=== PATIENT | female | born 1945 | race Caucasian/White ===

== ENCOUNTER 2016-07-27 10:01 | Day surgery (SDC) | payer OTHER ==
[~2016-07-27 10:01] MED LIST: Lactated Ringers 1,000 ML IV SCH; Sodium Chloride 0.9% 10 ML Syringe FLUSH PRN; Sodium Chloride 0.9% 2.5 ML Syringe FLUSH PRN
--- NOTE | 2016-07-27 10:47 | PCM.PREANE ---
Preanesthetic Assessment - Anesthesia/Transfusion/Family Hx Anesthesia History: Prior Anesthesia Without Reaction Family History of Anesthesia Reaction: No Transfusion History: No Prior Transfusion(s) Intubation History: Unknown - Review of Systems General: No Symptoms Pulmonary: No Symptoms Cardiovascular: No Symptoms Gastrointestinal: Difficulty swallowing Neurological: No Symptoms Other: Reports: None - Physical Assessment O2 Sat by Pulse Oximetry: 97 Respiratory Rate: 16 Vital Signs: Last Vital Signs Temp 36.7 C 07/27/16 10:23 Pulse 91 07/27/16 10:23 Resp 16 07/27/16 10:23 BP 125/82 07/27/16 10:23 Pulse Ox 97 07/27/16 10:23 Height: 1.65 m Weight: 69.853 kg ASA Class: 2 Mental Status: Alert & Oriented x3 Airway Class: Mallampati = 2 Dentition: Reports: Normal Dentition, Doyline(s) (x1 upper front) Thyro-Mental Finger Breadths: 2 Mouth Opening Finger Breadths: 3 ROM/Head Extension: Full Lungs: Clear to auscultation, Normal respiratory effort Cardiovascular: Regular Rate, Regular Rhythm - Allergies Allergies/Adverse Reactions: Allergies Allergy/AdvReac Type Severity Reaction Status Date / Time atorvastatin Allergy sore Verified 07/25/16 12:56 muscles/SOB cat dander Allergy Shortness Verified 07/25/16 12:58 of Breath grass pollen Allergy Shortness Verified 07/25/16 12:58 of Breath Penicillins Allergy Redness Verified 07/25/16 12:56 dust Allergy Shortness Uncoded 07/25/16 12:58 of Breath - Blood Blood Available: No - Anesthesia Plan Pre-Op Medication Ordered: None - Acknowledgements Anesthesia Type Planned: MAC Pt an Appropriate Candidate for the Planned Anesthesia: Yes Alternatives and Risks of Anesthesia Discussed w Pt/Guardian: Yes Pt/Guardian Understands and Agrees with Anesthesia Plan: Yes PreAnesthesia Questionnaire HEENT History: Reports: Allergic rhinitis Cardiovascular History: Reports: High cholesterol, Hypertension Gastrointestinal History: Reports: Other (see below) Other Gastrointestinal History: difficulty swallowing Genitourinary History: Reports: None Musculoskeletal History: Reports: Arthritis, Fracture Psychiatric History: Reports: Anxiety - Past Surgical History Head Surgeries/Procedures: Reports: None HEENT Surgical History: Reports: Cataract surgery Female Surgical History: Reports: Hysterectomy - SUBSTANCE USE Smoking Status *Q: Current Some Day Smoker Tobacco Use Within Last Twelve Months: Cigarettes Days Per Week of Alcohol Use: 3 Number of Drinks Per Day: 1 Total Drinks Per Week: 3 Recreational Drug Use History: No - HOME MEDS Home Medications: Home Meds Neomycin/Polymyxin B Sulf/HC [Fejsiaqp-Ysibndtdd-Yx Ear Soln] 1 drop EARBOTH ASDIRECTED PRN 07/25/16 [History] amLODIPine Bes/Olmesartan Med [Amlodipine-Olmesartan 5-20 mg] 1 tab PO ASDIRECTED 07/25/16 [History] - CURRENT (IN HOUSE) MEDS Current Meds: Current Medications Lactated Ringer's (Ringers, Lactated) 1,000 mls @ 125 mls/hr IV ASDIRECTED KARINA Last Admin: 07/27/16 10:24 Dose: 125 mls/hr Sodium Chloride (Saline Flush) 10 ml FLUSH ASDIRECTED PRN PRN Reason: Keep Vein Open Sodium Chloride (Saline Flush) 2.5 ml FLUSH ASDIRECTED PRN PRN Reason: Keep Vein Open
[2016-07-27] MEDS ORDERED: Midazolam 1 MG/ML 2 ML SDV ONE (11:36)
[2016-07-27] MEDS ORDERED: Lidocaine 2% 5 ML SDV ONE (11:36)
[2016-07-27] MEDS ORDERED: Propofol 200 MG/20 ML SDV ONE ×2 (11:36→13:16)
[2016-07-27] MEDS ORDERED: fentaNYL 100 MCG/2 ML SDV ONE (11:37)
[2016-07-27] MEDS ORDERED: Glycopyrrolate 0.2 MG/ML SDV ONE (13:18)
--- NOTE | 2016-07-27 13:59 | PCM.OPNOTE ---
- General Post-Op/Procedure Note Date of Surgery/Procedure: 07/27/16 Operative Procedure(s): Diagnostic egd and colonoscopy Findings: Normal esophagus and colon Pre Op Diagnosis: Dysphagia, anal pain Post-Op Diagnosis: normal colon and egd Anesthesia Technique: BRANDON Primary Surgeon: Jo Dumont Condition: Good
--- NOTE | 2016-07-27 14:14 | PCM.POSTAN ---
POST ANESTHESIA ASSESSMENT - MENTAL STATUS Mental Status: alert, oriented - RESPIRATORY Respiratory Status: respiratory rate WNL, airway patent, O2 saturation stable - CARDIOVASCULAR CV Status: pulse rate WNL, blood pressure stable - GASTROINTESTINAL GI Status: no symptoms - POST OP HYDRATION Hydration Status: adequate & stable - OBSERVATIONS Free Text/Narrative:: no anesthesia problems
[2016-07-27 14:50] VITALS: BP 122/68
--- NOTE | 2016-07-28 00:43 | OR ---
SURGEON: MEHDI KEENE MD DATE OF PROCEDURE: 07/27/2016 PREOPERATIVE DIAGNOSES: Dysphagia and anal pain. POSTOPERATIVE DIAGNOSIS: Dysphagia and anal pain. PROCEDURE PERFORMED: Diagnostic EGD and colonoscopy. INSTRUMENT USED: Olympus endoscope and colonoscope. ANESTHESIA: MAC. EXTENT OF EXAM: To the second portion of duodenum during the endoscopic portion, to the cecum during the colonoscopic portion. PREPARATION: Good. LIMITATIONS: None. INDICATIONS: The patient is a 71-year-old female, who presents with multiple complaints. Upon further questioning, the patient has been having some dysphagia with swallowing; however, she relates this to being exposed to dust and atorvastatin. The patient has also been experiencing some anal pain with bowel movements. She has not noticed any change in the color, caliber, or consistency of her stool. She has no family history of colon cancer. A decision was made to proceed to the operating room for a diagnostic EGD and colonoscopy. The patient and I discussed the procedures as well as expected perioperative course. We discussed the risks, including bleeding, infection, damage to surrounding structures, including perforation. The patient verbalized understanding and wished to proceed. PROCEDURE IN DETAIL: The patient was brought into the endoscopy suite and placed in a beach chair position. A time-out was completed verifying the patient's name, age, date of , allergies, and procedure to be performed. A bite block was placed in the patient's mouth and monitored anesthesia care was induced. Oxygen was provided via nasal cannula throughout the procedure. Once adequate sedation was achieved, the Olympus endoscope was passed over the patient's tongue down her esophagus and directed under direct visualization to the second portion of duodenum. This appeared normal and a photograph was taken. The scope was then pulled back in retrograde fashion to examine the remainder of the upper GI tract. The intestines and gastric mucosa all appeared normal. Photographs were taken of the pylorus and of the esophageal hiatus. The scope was then brought into the esophagus and a photograph taken of the Z-line, which appeared normal. I slowly withdrew the scope within the esophagus looking for any esophageal mucosal abnormalities and none were noted. The scope was removed from the patient and this portion of the procedure terminated. The patient was placed in left lateral decubitus position and a digital rectal exam was performed. This was within normal limits. A well lubricated colonoscope was then inserted in the rectum and advanced under direct visualization at the level of the cecum. Cecum was identified by both visual and anatomic landmarks. A photograph was taken of the cecal cap and I was unable to retroflex the scope within the cecum due to significant looping more proximally. The scope was then fully withdrawn while examining the color, texture, anatomy, and integrity of the mucosa from the cecum to the anal canal. The patient was noted to have diverticulosis throughout her colon; however, this was more concentrated within the sigmoid and descending colon. The remainder of the exam was normal and no polyps were noted. The scope was then brought into the rectum and retroflexed to allow visualization of the anal canal opening. This appeared normal with no evidence of severe hemorrhoidal disease or inflammation. A photograph was taken and the endoscope was straightened out. The scope was then removed. The patient and the procedure terminated. The cecum to anus time was 15 minutes. The patient was taken to the recovery room in stable condition. ENDOSCOPIC DIAGNOSIS: Normal esophagogastroduodenoscopy, diverticulosis of the colon. RECOMMENDATIONS: Follow up in clinic in 2 weeks. BHAKTI GARCIA /[id number] KYLE
== END 2016-07-27 14:33 | disposition home or self-care (01) ==
LOC: MW.SDS 10:01
PROVIDERS: ATTEND Surgery
DX: K57.30 Diverticulosis of large intestine without perforation or abscess without bleeding (principal); Z88.0 Allergy status to penicillin; Z88.8 Allergy status to other drugs, medicaments and biological substances; Z91.09 Other allergy status, other than to drugs and biological substances; Z79.899 Other long term (current) drug therapy; Z90.710 Acquired absence of both cervix and uterus; Z78.9 Other specified health status
CPT/HCPCS: 43235; 45378; J2250; J3010; J7120; 00740; J2704